=== PATIENT | female | born 1990 ===

== ENCOUNTER 2019-11-22 19:52 | Inpatient (IN) | payer OTHER ==
[~2019-11-22] VITALS: Ht 154.9 cm; Wt 179.0 kg
[2019-11-22] MEDS ORDERED: LACTATED RINGERS 1,000 ML IV PRN (21:21)
[2019-11-22] MEDS ORDERED: MAGNESIUM SULF. PMX 20GM/500ML 500 ML IV ONE (21:23)
[2019-11-22] MEDS ORDERED: BETAMETHASONE 6 MG/ML, 5ML IM SCH (21:30)
[2019-11-22] MEDS ORDERED: MAGNESIUM SULFATE PMX 2GM/50ML 50 ML IVPB ONE (21:30)
[2019-11-22] MEDS ORDERED: PLEASE ENTER HEIGHT AND WEIGHT MC SCH (21:30)
[2019-11-22 21:57] VITALS: BP 139/80
[2019-11-22] MEDS: MAGNESIUM SULF. PMX 20GM/500ML 500 ML IV SCH (22:09)
[2019-11-22 22:10] LABS: BASOPHILS # (AUTO) 0.02 x10^3/uL (0-0.1); BASOPHILS % (AUTO) 0 % (0-1); EOSINOPHILS % (AUTO) 0 % (1-7); LYMPHOCYTES # (AUTO) 0.63 x10^3/uL (1-3.4); LYMPHOCYTES % (AUTO) 4 % (22-44); MD NO; MEAN CORPUSCULAR HEMOGLOBIN 30.9 pg (27.0-34.8); MEAN CORPUSCULAR HGB CONC 33.6 g/dL (32.4-35.8); MEAN CORPUSCULAR VOLUME 91.9 fL (80-100); MEAN PLATELET VOLUME 7.1 fL (7.4-10.4); MONOCYTES # (AUTO) 0.18 x10^3/uL (0.2-0.8); MONOCYTES % (AUTO) 1 % (2-9); NEUTROPHILS # (AUTO) 13.39 x10^3/uL (1.8-6.8); NEUTROPHILS % (AUTO) 94 % (42-75); PLATELET COUNT 167 x10^3/uL (130-400); RED BLOOD COUNT 4.28 x10^6/uL (3.82-5.3); RED CELL DISTRIBUTION WIDTH 14.5 % (9.6-15.2)
[2019-11-22 22:21] LABS: ALANINE AMINOTRANSFERASE 155 U/L (12-78); ALBUMIN 2.7 g/dL (3.4-5.0); ANION GAP 10 mmol/L (5-15); CALCIUM 8.6 mg/dL (8.5-10.1); CHLORIDE 106 mmol/L (98-107); CREATININE 0.75 mg/dL (0.55-1.02)
[2019-11-22 22:23] LABS: ALKALINE PHOSPHATASE 183 U/L (45-117); BILIRUBIN,TOTAL 1.2 mg/dL (0.2-1.0); TOTAL PROTEIN 7.8 g/dL (6.4-8.2)
[2019-11-22] MEDS ORDERED: NEWBORN KIT ONE (22:26)
[2019-11-22 22:30] LABS: MICROSCOPIC INDICATED
[2019-11-22 22:40] LABS: CREATININE,URINE RANDOM 42.2 mg/dL
[2019-11-22] MEDS ORDERED: METOCLOPRAMIDE 5 MG/ML, 2ML ONE (22:49)
[2019-11-22] MEDS ORDERED: SODIUM CITRATE/CITRIC ACID 30 ML UDC ONE (22:50)
[2019-11-22] MEDS ORDERED: OXYTOCIN 30U/ 0.9% NaCL 500ML 500 ML ONE (22:50)
[2019-11-22] MEDS ORDERED: morphine SULFATE/PF 0.5 MG/ML, 10ML ONE (22:57)
[2019-11-22] MEDS ORDERED: LACTATED RINGERS 1,000 ML IVBOLUS ONE (23:00)
[2019-11-22] MEDS ORDERED: METOCLOPRAMIDE 5 MG/ML, 2ML IV ONE (23:00)
[2019-11-22] MEDS ORDERED: CEFAZOLIN PMX 1GM/50ML 50 ML IVPB ONE (23:00)
[2019-11-22] MEDS ORDERED: SODIUM CITRATE/CITRIC ACID 30 ML UDC PO ONE (23:00)
[2019-11-22] MEDS ORDERED: CEFAZOLIN 1,000 MG ONE (23:01)
[2019-11-22] MEDS ORDERED: PHENYLEPHRINE 10 MG/ML ONE (23:01)
[2019-11-22] MEDS ORDERED: ONDANSETRON 2MG/ML, 2ML ONE (23:01)
[2019-11-22] MEDS ORDERED: EPHEDRINE 50 MG/ML, 1ML ONE (23:01)
[2019-11-22] MEDS ORDERED: WATER-INJECTION,STERILE 10 ML IV ONE (23:01)
[2019-11-22] MEDS ORDERED: OXYTOCIN 10 UNITS/ML, 1ML ONE (23:01)
[2019-11-22] MEDS ORDERED: EPINEPHRINE 1 MG/ML, 1ML ONE (23:02)
[2019-11-23] MEDS ORDERED: LACTATED RINGERS 1,000 ML IV SCH (00:25)
[2019-11-23] MEDS ORDERED: MISOPROSTOL 200 MCG TABLET PR PRN (00:30)
[2019-11-23] MEDS ORDERED: OXYcodone IR 5MG TABLET PO PRN (00:30)
[2019-11-23] MEDS ORDERED: ONDANSETRON 2MG/ML, 2ML IV PRN (00:30)
[2019-11-23] MEDS ORDERED: ACETAMINOPHEN 325 MG TABLET PO PRN (00:30)
[2019-11-23] MEDS ORDERED: CARBOPROST TROMETHAMINE 250 MCG/ML, 1ML IM PRN (00:30)
[2019-11-23] MEDS: OXYTOCIN 30U/ 0.9% NaCL 500ML 500 ML IV SCH ×3 (01:23→20:25)
[2019-11-23] MEDS: LACTATED RINGERS 1,000 ML IV SCH ×3 (01:23→20:25)
[2019-11-23] MEDS ORDERED: KETOROLAC 30 MG/1 ML ONE (02:25)
[2019-11-23] MEDS ORDERED: DIPHENHYDRAMINE 50 MG/ML, 1ML IV PRN (02:30)
[2019-11-23] MEDS ORDERED: HYDROmorphone 1 MG/ML, 1ML INJ IVPush PRN (02:30)
[2019-11-23] MEDS ORDERED: NALOXONE 0.4 MG/ML, 1ML IV PRN ×2 (02:30)
[2019-11-23] MEDS ORDERED: OXYcodone/APAP 5/325MG TABLET PO PRN (02:30)
[2019-11-23] MEDS ORDERED: KETOROLAC 30 MG/1 ML IVPush SCH (02:30)
[2019-11-23 02:44] VITALS: BP 128/65
[2019-11-23 08:07] LABS: MEAN CORPUSCULAR HEMOGLOBIN 31.2 pg (27.0-34.8); MEAN CORPUSCULAR HGB CONC 33.7 g/dL (32.4-35.8); MEAN CORPUSCULAR VOLUME 92.6 fL (80-100); MEAN PLATELET VOLUME 6.9 fL (7.4-10.4); PLATELET COUNT 162 x10^3/uL (130-400); RED BLOOD COUNT 3.74 x10^6/uL (3.82-5.3); RED CELL DISTRIBUTION WIDTH 14.6 % (9.6-15.2)
[2019-11-23 08:14] LABS: ALANINE AMINOTRANSFERASE 112 U/L (12-78); ALBUMIN 2.2 g/dL (3.4-5.0); ANION GAP 8 mmol/L (5-15); CALCIUM 7.3 mg/dL (8.5-10.1); CHLORIDE 104 mmol/L (98-107); CREATININE 0.68 mg/dL (0.55-1.02)
[2019-11-23 08:16] LABS: ALKALINE PHOSPHATASE 163 U/L (45-117); BILIRUBIN,TOTAL 0.7 mg/dL (0.2-1.0); TOTAL PROTEIN 6.2 g/dL (6.4-8.2)
[2019-11-23 08:19] LABS: MD YES
[2019-11-23 08:21] LABS: <PLATELET ESTIMATE> ADEQUATE; <PLT MORPHOLOGY> NORMAL PLT MORPH; <RBC MORPHOLOGY> NORMAL; BAND#(MANUAL) 0.18 x10^3/uL; BANDS%(MANUAL) 1 % (0-7); LYMPH#(MANUAL) 1.45 x10^3/uL (1-3.4); LYMPHS% (MANUAL) 8 % (22-44); MONOS#(MANUAL) 0.18 x10^3/uL (0.3-2.7); MONOS% (MANUAL) 1 % (2-9); SEG#(MANUAL) 16.29 x10^3/uL (1.8-6.8); SEGS% (MANUAL) 90 % (42-75)
[2019-11-23] MEDS ORDERED: MAGNESIUM SULF. PMX 20GM/500ML 500 ML IV ONE ×2 (08:44→19:45)
[2019-11-23] MEDS: MAGNESIUM SULF. PMX 20GM/500ML 500 ML IV SCH (08:47)
[2019-11-23] MEDS ORDERED: PRENATAL VIT/IRON/FA 1 EACH TABLET PO SCH (09:00)
[2019-11-23] MEDS ORDERED: IBUPROFEN 600 MG TABLET ONE ×2 (11:02→22:35)
[2019-11-23] MEDS: IBUPROFEN 600 MG TABLET PO PRN ×2 (11:03→22:38)
[2019-11-23] MEDS: SIMETHICONE 80 MG CHEW TAB PO PRN (15:46)
[2019-11-23] MEDS ORDERED: SIMETHICONE 80 MG CHEW TAB ONE (15:46)
[2019-11-23] MEDS ORDERED: MAGNESIUM SULF. PMX 20GM/500ML 500 ML IV SCH (15:52)
[2019-11-23] MEDS ORDERED: OXYcodone/APAP 5/325MG TABLET ONE (22:38)
[2019-11-23] MEDS: OXYcodone/APAP 5/325MG TABLET PO PRN (22:38)
[2019-11-24] MEDS ORDERED: IBUPROFEN 600 MG TABLET ONE (07:55)
[2019-11-24] MEDS: IBUPROFEN 600 MG TABLET PO PRN ×3 (07:56→19:54)
[2019-11-24] MEDS: SODIUM CHLORIDE FLUSH 10ML SYR IVF SCH ×2 (09:00→21:00)
[2019-11-24 09:30] VITALS: BP 109/65
[2019-11-24 12:30] VITALS: BP 131/82
[2019-11-24] MEDS: OXYcodone/APAP 5/325MG TABLET PO PRN (13:43)
[2019-11-24 15:50] VITALS: BP 130/83
[2019-11-24 19:35] VITALS: BP 132/85
[2019-11-24] MEDS: PRENATAL VIT/IRON/FA 1 EACH TABLET PO SCH (19:53)
[2019-11-24] MEDS: DOCUSATE 100 MG CAPSULE PO PRN (19:53)
[2019-11-25 00:10] VITALS: BP 132/83
[2019-11-25] MEDS: SIMETHICONE 80 MG CHEW TAB PO PRN ×2 (03:23→09:15)
[2019-11-25] MEDS: IBUPROFEN 600 MG TABLET PO PRN ×4 (03:23→22:35)
[2019-11-25] MEDS: OXYcodone/APAP 5/325MG TABLET PO PRN ×3 (03:24→22:35)
[2019-11-25 04:16] VITALS: BP 133/80
[2019-11-25 05:47] LABS: BASOPHILS # (AUTO) 0.04 x10^3/uL (0-0.1); BASOPHILS % (AUTO) 0 % (0-1); EOSINOPHILS # (AUTO) 0.06 x10^3/uL (0-0.4); EOSINOPHILS % (AUTO) 0 % (1-7); LYMPHOCYTES # (AUTO) 2.42 x10^3/uL (1-3.4); LYMPHOCYTES % (AUTO) 18 % (22-44); MD NO; MEAN CORPUSCULAR HEMOGLOBIN 31.1 pg (27.0-34.8); MEAN CORPUSCULAR HGB CONC 33.1 g/dL (32.4-35.8); MEAN CORPUSCULAR VOLUME 94.1 fL (80-100); MEAN PLATELET VOLUME 7.2 fL (7.4-10.4); MONOCYTES # (AUTO) 0.72 x10^3/uL (0.2-0.8); MONOCYTES % (AUTO) 5 % (2-9); NEUTROPHILS # (AUTO) 10.16 x10^3/uL (1.8-6.8); NEUTROPHILS % (AUTO) 76 % (42-75); PLATELET COUNT 183 x10^3/uL (130-400); RED BLOOD COUNT 3.39 x10^6/uL (3.82-5.3); RED CELL DISTRIBUTION WIDTH 14.9 % (9.6-15.2)
[2019-11-25 05:59] LABS: ALBUMIN 2.3 g/dL (3.4-5.0); ANION GAP 7 mmol/L (5-15); CALCIUM 8.4 mg/dL (8.5-10.1); CHLORIDE 108 mmol/L (98-107)
[2019-11-25 06:05] LABS: ALANINE AMINOTRANSFERASE 53 U/L (12-78); ALKALINE PHOSPHATASE 135 U/L (45-117); BILIRUBIN,TOTAL 0.5 mg/dL (0.2-1.0); CREATININE 0.77 mg/dL (0.55-1.02); TOTAL PROTEIN 6.1 g/dL (6.4-8.2)
[2019-11-25 07:30] VITALS: BP 127/78
[2019-11-25] MEDS: SODIUM CHLORIDE FLUSH 10ML SYR IVF SCH ×2 (09:00→21:00)
[2019-11-25] MEDS: DOCUSATE 100 MG CAPSULE PO PRN ×2 (09:13→21:18)
[2019-11-25 12:50] VITALS: BP 122/78
[2019-11-25 16:00] VITALS: BP 144/86
[2019-11-25 19:11] VITALS: BP 137/80
[2019-11-25] MEDS: PRENATAL VIT/IRON/FA 1 EACH TABLET PO SCH (21:18)
[2019-11-26 07:42] VITALS: BP 130/82
[2019-11-26] MEDS: DOCUSATE 100 MG CAPSULE PO PRN (07:52)
[2019-11-26] MEDS: IBUPROFEN 600 MG TABLET PO PRN ×2 (07:52→16:14)
[2019-11-26] MEDS: SODIUM CHLORIDE FLUSH 10ML SYR IVF SCH (09:00)
[2019-11-26] MEDS ORDERED: BISACODYL 5 MG EC TABLET PO ONE (15:00)
[2019-11-26] MEDS ORDERED: IBUP-1222 PO (15:55)
[2019-11-26] MEDS ORDERED: DOCU-131 PO (15:56)
[2019-11-26] MEDS: OXYcodone/APAP 5/325MG TABLET PO PRN (16:14)
== END 2019-11-26 16:30 | disposition home or self-care (01) | DRG 788 ==
LOC: LDIP 19:52 → UNDOADMIN 19:52 → LDIP 21:17 → 2NW 11-24 08:34
PROVIDERS: ADMIT Obstetrics & Gynecology Maternal & Fetal Medicine; ATTEND Obstetrics & Gynecology Maternal & Fetal Medicine
PROC: 10D00Z1 Extraction of Products of Conception, Low, Open Approach (ICD-10-PCS; principal; 2019-11-22)
PROC: 0T9B70Z Drainage of Bladder with Drainage Device, Via Natural or Artificial Opening (ICD-10-PCS; 2019-11-22)
DX: O14.14 Severe pre-eclampsia complicating childbirth (principal); O30.043 Twin pregnancy, dichorionic/diamniotic, third trimester; O36.5931 Maternal care for other known or suspected poor fetal growth, third trimester, fetus 1; O36.5932 Maternal care for other known or suspected poor fetal growth, third trimester, fetus 2; O32.2XX2 Maternal care for transverse and oblique lie, fetus 2; O75.89 Other specified complications of labor and delivery; R74.8 Abnormal levels of other serum enzymes; Z37.2 Twins, both liveborn; Z90.49 Acquired absence of other specified parts of digestive tract; Z20.828 Contact with and (suspected) exposure to other viral communicable diseases; Z3A.31 31 weeks gestation of pregnancy
CPT/HCPCS: 36415; 80053; 81001; 82570; 82803; 83735; 84156; 85025; 86592; 86850; 86900; 87635; 88307; G0378; J0171; J0690; J1885; J2274; J2405; J2370; J2590; J2765; J3475; J7120